=== PATIENT | male | born 1975 | race Caucasian/White ===

== ENCOUNTER 2017-04-13 14:04 | Emergency (ER) | payer MEDICAID ==
[~2017-04-13 14:04] MED LIST: BISCOLAX10 MG PR; CIPRO500 MG PO; COLACE100 M1 PO; DITROPAN5 M1 PO; MIRALAX17 G2 PO; MOTRIN IB200 M1 PO; MULTIVITAMINS1 EAC7 PO; MYRBETRIQ50 M1 PO; PROZAC20 M3 PO; RISPERDAL0.5 M2 PO; RISPERDAL1 M2 PO; SIMVASTATIN20 MG PO; TEGRETOL200 M1 PO; VITAMIN D-32000 UNI4 PO
[2017-04-13 15:06] LABS: ANION GAP 13 mmol/L (0-20); BLOOD UREA NITROGEN 9 mg/dl (6-24); CALCIUM 8.2 mg/dl (8.5-10.5); CARBON DIOXIDE-VENOUS 28 mmol/L (22-32); CHLORIDE 97 mmol/l (96-110); CREATININE 0.61 mg/dl (0.60-1.30); GLUCOSE 91 mg/dL (70-110); POTASSIUM 3.4 mmol/L (3.7-5.1); SODIUM 135 mmol/L (135-145); eGFR VALUE FOR BLACK >90 mL/Min
[2017-04-13] MEDS ORDERED: KEPPRA500 M3 PO (15:28)
== END 2017-04-13 15:34 ==
LOC: EDMED 14:04
PROVIDERS: Emergency Medicine
DX: G40.909 Epilepsy, unspecified, not intractable, without status epilepticus (principal)